=== PATIENT | female | born 2005 | race Caucasian/White ===

== ENCOUNTER 2024-02-16 06:35 | Emergency (ER) | payer OTHER, SELFPAY ==
[2024-02-16 06:47] VITALS: BP 119/81
[2024-02-16 07:27] VITALS: BP 110/76
[2024-02-16 08:08] VITALS: BP 115/80; BMI 19.0
--- NOTE | 2024-02-16 08:09 | ED.GENMED ---
History of Present Illness
General
Chief Complaint: Abdominal Pain
Source: patient
Exam Limitations: none
Time Seen by Provider: 02/16/24 07:30
Nursing documentation reviewed up to this point in time: agreed with
History of Present Illness
History of Present Illness:
Patient is a 18-year-old biological female who is transgender ( on subcutaneous testosterone )who presents to the ER for evaluation of vomiting that started around 4 AM. Patient reports he vomited approximately 5�6 times since 4 AM. Patient
reports his biological twin sister also has similar symptoms. He denies any alcohol use. Had some abdominal discomfort initially but no abdominal pain now. Denies any lower abdominal pelvic pain. Denies any urinary frequency urgency or dysuria.
Pt no longer gets menses.
Review of Systems
Review of Systems
Allergies reviewed?: Yes
All Other Systems: ROS reviewed and negative except as documented in HPI and ROS
Constitutional: Denies fever, fatigue or chills
Respiratory: Reports no symptoms
Cardiac: Reports no symptoms
ABD/GI: Reports nausea and vomiting; Denies abdominal pain or diarrhea
: Reports no symptoms
Musculoskeletal: Reports no symptoms
Neurological: Reports no symptoms
Psychiatric: Reports no symptoms
Phy Exam
General Physical Exam
General Presentation: no apparent distress
General Skin: warm and dry
General Habitus: normal
General Mental: alert
General Hydration: dry mucous membranes
Cardiovascular Exam
Cardiovascular Exam: regular rate/rhythm, no murmur and normal peripheral pulses
Pulmonary Exam
Pulmonary Exam: lungs clear and no respiratory distress
Gastrointestinal Exam
Gastrointestinal Exam: non tender and soft
Neurological Exam
Neurological Exam: alert and oriented x3
Musculoskeletal Exam
Musculoskeletal Exam: full ROM
Skin Exam
Skin Exam: normal color and warm/dry
Psychiatric Exam
Psychiatric Exam: normal mood/affect
Course
Orders/Labs/Results
Orders:
Orders
02/16/24 08:08
IV Insert/Care/Rem.- Treatment PRN
0.9% Sodium Chloride 1000 ml [Nss] 1,000 ml IV BOLUS
Ondansetron Injectable [Zofran] 4 mg IV NOW STA
Test Result ONCE
02/16/24 08:20
Complete Blood Count/With Diff Urgent
Comprehensive Metabolic Panel Urgent
HCG, Serum Qualitative Screen Urgent
02/16/24 09:12
Crisis Consult Urgent
Reason for Consult: suicidal thoughts in the past
Abnormal Lab Results
02/16/24
08:20
MCH 25.7 L pg
(27.0-31.0)
MCHC 31.6 L g/dL
(33.0-37.0)
RDW 15.5 H %
(11.5-14.5)
Absolute Neuts (auto) 7.8 H 10^3/uL
(1.4-6.5)
Absolute Lymphs (auto) 0.4 L 10^3/uL
(1.2-3.4)
Neutrophils % 89.1 H %
(42.2-75.2)
Lymphocytes % 5.0 L %
(20.5-51.1)
ALT 37 H U/L
(0-35)
02/16/24 08:20
02/16/24 08:20
Vital Signs
Initial and Last Documented VS:
Initial Vital Signs
Temp Pulse Resp BP Pulse Ox
99.1 F 88 20 119/81 99
02/16/24 06:47 02/16/24 06:47 02/16/24 06:47 02/16/24 06:47 02/16/24 06:47
Last Documented Vital Signs
Temp Pulse Resp BP Pulse Ox
99.1 F 101 20 108/70 96
02/16/24 06:47 02/16/24 08:07 02/16/24 06:47 02/16/24 10:00 02/16/24 10:00
MDM/Problems Addressed
MDM/Problems Addressed:
Symptoms are consistent with viral syndrome. Patient sibling is also here with similar symptoms. Patient no acute distress abdomen soft nontender white count normal temp 99.1 unremarkable chemistries. Patient received fluids and Zofran here will
p.o. challenge and plan for discharge home with Zofran as needed for nausea
*Pulse Oximetry
Patient hypoxic: no
*Critical Care Note
Total Time (30-74mins, 75-104mins- exclusive of procedures): Not Applicable
ED Attending Note
-
Portions of this chart may have been created with voice recognition software.� Occasional wrong word or��sound alike� substitutions may have occurred due to the inherent limitations of voice recognition software.
Discharge Plan
Departure
Patient Disposition: Home (Routine Discharge)
Date of Disposition: 02/16/24
Time of Disposition: 10:31
Patient with high blood pressure during this ER visit?: No
Condition: Fair
Covid-19: Not Applicable
Discharge Problem:
Acute viral syndrome, Nausea & vomiting
Instructions: Nausea and Vomiting, Adult (DC)
Prescriptions:
New
ondansetron 4 mg tablet,disintegrating
4 mg PO Q8H PRN (Reason: nausea and vomiting) Qty: 10 0RF
Referrals:
Nati Dawn MD [Family Provider] -
Activity Restrictions/Additional Instructions:
A prescription for Zofran was sent to pharmacy take as directed for nausea and vomiting.
Clear fluids for the next 24 hours followed by bland solid foods. Follow-up with family doctor in the next several days.
return if any worsening of symptoms
Interventions
Interventions:
*Risk Screen - Suicide Last Done: 02/16/24 08:39
*General Assessment Last Done: 02/16/24 08:39
*Neglect/Abuse Screening Last Done: 02/16/24 08:39
*ED COVID-19 Vaccine History Last Done: 02/16/24 08:39
Discharge Date and Time
Print Language: BRITISH
[2024-02-16] MEDS: NSS 1000 IV (08:28)
[2024-02-16] MEDS: ZOFRAN 4 MG IV (08:29)
[2024-02-16 08:36] LABS: % Basophils 0.1 % (0-2); % Eosinophils 0.2 % (0-6); % Immature Granulocytes 0.3 % (0-0.5); % Monocytes 5.3 % (1.7-9.3); % Neutrophils 89.1 % (42.2-75.2); Absolute Lymphocytes 0.4 10^3/uL (1.2-3.4); Absolute Monocytes 0.5 10^3/uL (0.1-0.6); Absolute Neutrophils 7.8 10^3/uL (1.4-6.5); Hematocrit 43.7 % (37.0-47.0); Hemoglobin 13.8 g/dL (12.0-16.0); Mean Corp Hgb Conc. 31.6 g/dL (33.0-37.0); Mean Corpuscular Hgb 25.7 pg (27.0-31.0); Mean Corpuscular Volume 81.5 fL (81.0-99.0); Mean Platelet Volume 10.1 fL (7.4-10.4); Nucleated Red Blood Cells % 0 %; Platelet Count 216 10^3/uL (130-400); Red Blood Cell Count 5.36 10^6/uL (4.20-5.40); Red Cell Dist. Width 15.5 % (11.5-14.5); White Blood Cell Count 8.7 10^3/uL (4.8-10.8)
[2024-02-16 08:46] LABS: HCG, Serum Qualitative Screen Negative
[2024-02-16 08:49] LABS: ALT (SGPT) 37 U/L (0-35); AST (SGOT) 26 U/L (14-36); Albumin 4.7 g/dl (3.5-5.0); Alkaline Phosphatase 72 U/L (38-126); Blood Urea Nitrogen 16 mg/dl (7-17); Calcium 9.1 mg/dl (8.4-10.2); Carbon Dioxide 25 mmol/L (22-30); Chloride 104 mmol/L (98-107); Estimated Creatinine Clearance 111 ml/min; Glucose 99 mg/dl (70-99); Potassium 4.6 mmol/L (3.5-5.1); Sodium 142 mmol/L (135-145); Total Protein 6.8 g/dl (6.3-8.2); eGFR > 60.00
[2024-02-16 09:00] VITALS: BP 119/64
[2024-02-16 10:00] VITALS: BP 108/70
[2024-02-16 10:43] VITALS: BP 108/70
== END 2024-02-16 10:45 | disposition home or self-care (01) ==
LOC: EMR 06:35
PROVIDERS: Nurse Practitioner; EMERGENCY PHYSICIAN Emergency Medicine; FAMILY PHYSICIAN Pediatrics
DX: B34.9 Viral infection, unspecified (principal); R11.2 Nausea with vomiting, unspecified
CPT/HCPCS: 99283; 96360; 80053; 84703; 85025